=== PATIENT | male | born 1960 | race Caucasian/White ===

== ENCOUNTER 2016-09-12 10:03 | Day surgery (SDC) | payer OTHER ==
[2016-09-12 10:33] VITALS: TEMP 98.4; BMI 34.7
[2016-09-12] MEDS ORDERED: PROPOFOL 20 ML ONE ×2 (11:45)
[2016-09-12] MEDS ORDERED: LIDOCAINE HCL/PF 1% SDV 5ML VIAL ONE (11:45)
[2016-09-12 12:36] VITALS: PULSE 70
[2016-09-12 13:11] VITALS: BP 112/75
== END 2016-09-12 13:11 | disposition home or self-care (01) ==
LOC: JASU-ENDO 10:03
PROVIDERS: ATTEND Internal Medicine Gastroenterology
PROC: 0DJD8ZZ Inspection of Lower Intestinal Tract, Via Natural or Artificial Opening Endoscopic (ICD-10-PCS; principal; 2016-09-12 11:00)
DX: Z12.11 Encounter for screening for malignant neoplasm of colon (principal); K64.8 Other hemorrhoids